=== PATIENT | male | born 1940 | race Caucasian/White ===

== ENCOUNTER 2025-06-29 06:00 | Emergency (ER) | payer OTHER ==
[~2025-06-29] VITALS: Ht 167.6 cm; Wt 108.9 kg
[2025-06-29 06:42] LABS: PLATELET COUNT (AUTO) 322 K/uL (150-450); RED BLOOD CELL COUNT(AUTO) 4.93 MIL/uL (4.5-6.0); RED CELL DISTRIBUTION WIDTH 14.1 % (11.5-15.0); WHITE BLOOD COUNT (AUTO) 9.3 K/uL (4.3-11.0)
[2025-06-29 06:50] LABS: CALCIUM, SERUM 9.0 mg/dL (8.5-10.1); CREATININE 0.8 mg/dL (0.6-1.3); SODIUM SERUM 141 mmol/L (136-145); UREA NITROGEN, BLOOD 13 mg/dL (7-18)
[2025-06-29 06:57] LABS: INR 0.97 (0.91-1.10)
[2025-06-29 06:59] LABS: ASPARTATE AMINOTRANSFERASE 22 U/L (15-37); TOTAL PROTEIN, SERUM 7.0 g/dL (6.4-8.2)
[2025-06-29] MEDS ORDERED: ROSU20TA2 PO (08:27)
[2025-06-29] MEDS ORDERED: INSU100V SQ (08:27)
[2025-06-29] MEDS ORDERED: INSU100V7 SQ (08:27)
[2025-06-29] MEDS ORDERED: METO25TA4 PO (08:27)
[2025-06-29] MEDS ORDERED: LEVO25TA2 PO (08:27)
[2025-06-29] MEDS ORDERED: LISI1TAB32 PO (08:27)
[2025-06-29] MEDS ORDERED: METF1000 PO (08:27)
[2025-06-29] MEDS: DEXTROSE 50%-WATER 50 ML DISP.SYRIN IV ONE (10:37)
[2025-06-29 11:39] VITALS: BP 150/65; TEMP 98.7; O2SAT 96
== END 2025-06-29 23:00 | disposition left against medical advice (07) ==
LOC: ER 06:03 → UNDOADMIN 10:46 → TELE1 10:46 → UNDODISIN 12:05 → ER 23:00
DX: S61.412A Laceration without foreign body of left hand, initial encounter (principal); S40.012A Contusion of left shoulder, initial encounter; E16.2 Hypoglycemia, unspecified; I10 Essential (primary) hypertension; E11.9 Type 2 diabetes mellitus without complications; E66.9 Obesity, unspecified; I44.1 Atrioventricular block, second degree; Z79.84 Long term (current) use of oral hypoglycemic drugs; Z79.890 Hormone replacement therapy; Z79.4 Long term (current) use of insulin; W22.01XA Walked into wall, initial encounter; Y93.89 Activity, other specified; Y92.89 Other specified places as the place of occurrence of the external cause; Y99.8 Other external cause status
CPT/HCPCS: 36415; 70450-TC; 71045-TC; 73030-TC; 80048-TC; 80076-TC; 82962-TC; 84484-TC; 85025-TC; 85730-TC; G0378